=== PATIENT | female | born 1940 | race American Indian/Alaskan Native ===

== ENCOUNTER 2016-05-18 14:47 | Outpatient (CLI) | payer MEDICARE ==
--- NOTE | 2016-05-18 17:10 | Vascular Lab Report ---
LOWER EXTREMITY VENOUS DUPLEX: REASON FOR EXAM: Bilateral leg swelling. COMMENTS ON THE RIGHT: Deep venous thrombosis is noted in the femoral and peroneal veins. The remaining veins visualized are freely compressible without evidence of internal echogenicity. Spontaneous and phasic flow is present proximally. COMMENTS ON THE LEFT: All veins visualized are freely compressible without evidence of internal echogenicity. Flow is spontaneous and phasic throughout. IMPRESSION: Deep venous thrombosis in the right lower extremity
== END 2016-05-18 14:48 | disposition home or self-care (01) ==
LOC: VAS 14:47
PROVIDERS: ATTEND Internal Medicine Hematology & Oncology
DX: C16.9 Malignant neoplasm of stomach, unspecified (principal); C49.4 Malignant neoplasm of connective and soft tissue of abdomen; I82.411 Acute embolism and thrombosis of right femoral vein; M79.89 Other specified soft tissue disorders
CPT/HCPCS: 93970

== ENCOUNTER 2016-05-22 11:52 | Outpatient (CLI) | payer MEDICARE ==
--- NOTE | 2016-05-22 12:24 | XRay Report ---
CHEST X-RAY, 2 VIEWS History: Cough, coarse breath sounds. Findings: An approximate 7 x 6 cm mass like lesion is identified along the right side of the superior mediastinum. This is a new finding since 09/10/07. The trachea is compressed and diverted to the left side. Tracheal stenosis could be present. Heart size is normal. Normal pulmonary vascularity. The lungs are clear. Normal bony thorax. Impression: Right superior mediastinal mass which is new since 2007. Further evaluation with CT chest with contrast is recommended. A neoplastic process is suspected until proven otherwise.
== END 2016-05-22 11:53 | disposition home or self-care (01) ==
LOC: SPVIMAG 11:52
PROVIDERS: ATTEND Internal Medicine Hematology & Oncology
DX: C16.9 Malignant neoplasm of stomach, unspecified (principal); C49.4 Malignant neoplasm of connective and soft tissue of abdomen; R05 Cough; R09.89 Other specified symptoms and signs involving the circulatory and respiratory systems
CPT/HCPCS: 71020

== ENCOUNTER 2016-06-15 10:01 | Outpatient (CLI) | payer MEDICARE ==
--- NOTE | 2016-06-15 11:47 | Mammography Report ---
BILATERAL DIGITAL DIAGNOSTIC MAMMOGRAM with CAD and LEFT BREAST ULTRASOUND: 06/15/16 10:01:00 CLINICAL: Left breast swelling. COMPARISON:None available. FINDINGS: The breasts are heterogeneously dense, which may obscure small masses in the left breast is slightly more dense on the right. Moderate bilateral periareolar and lower inner skin thickening which is greater on the left than the right.No mass, architectural distortion or suspicious calcifications. Ultrasound of left breast (including all four quadrants and the retroareolar area) was performed and demonstrated normal fibroglandular and fatty structures. No mass, cyst or shadowing. Ultrasound of the left axilla demonstrated a single lymph node with central fat and benign morphology measuring 9 x 8 x 4 mm. No suspicious lymph nodes. On physical exam, the left breast is more firm than the right and there is inferior periareolar peau d'orange change of the skin. A IMPRESSION: Suspicious asymmetric skin thickening of the left breast with peau d'orange change of the skin. However, no underlying breast or axillary mass is identified on the mammogram or with left breast ultrasound. The differential includes benign soft tissue edema or lymphedema as well as occult malignancy. Recommend a skin biopsy of the left breast to exclude malignancy. BI-RADS CATEGORY: 4--Suspicious RECOMMENDATION: Referral to a breast surgeon for a punch biopsy of the skin of the left breast. ACR BI-RADS MAMMOGRAPHIC CODES: 0 = Needs additional imaging evaluation; 1 = Negative; 2 = Benign; 3 = Probably benign; 4 = Suspicious; 5 = Malignant; 6 = Known biopsy-proven malignancy COMMENT: 1. Dense breast tissue, i.e., adenosis, fibrocystic changes, etc., may obscure an underlying neoplasm. 2. Approximately 10% of cancers are not detected with mammography. 3. A negative mammography report should not delay biopsy if a clinically suspicious mass is present. COMMENT: Patient follow-up letters are generated by our [employer] application.
== END 2016-06-15 10:02 | disposition home or self-care (01) ==
LOC: SPVWC 10:01
PROVIDERS: ATTEND Internal Medicine Hematology & Oncology
DX: N63 Unspecified lump in breast (principal)
CPT/HCPCS: 76641; G0204; 77066

== ENCOUNTER 2017-02-19 07:23 | Outpatient (CLI) | payer MEDICARE ==
--- NOTE | 2017-02-20 07:37 | Vascular Lab Report ---
Right Lower Extremity Venous Duplex Study: Reason for Exam: History of right leg DVT. Comments on the Right: All veins visualized are freely compressible without evidence of internal echogenicity. Flow is spontaneous and phasic throughout. No evidence of acute or chronic thrombus is seen in any of the vessels visualized. Comments on the Left: A limited duplex study was done of the proximal veins of the left lower extremity. All veins visualized are freely compressible without evidence of internal echogenicity. Flow is spontaneous and phasic throughout. No evidence of acute or chronic thrombus is seen in any of the vessels visualized. Impression: No evidence of acute or chronic deep venous thrombosis in the right lower extremity.
== END 2017-02-19 07:24 | disposition home or self-care (01) ==
LOC: VAS 07:23
PROVIDERS: ATTEND Internal Medicine Hematology & Oncology
DX: I82.401 Acute embolism and thrombosis of unspecified deep veins of right lower extremity (principal); C16.9 Malignant neoplasm of stomach, unspecified; C49.4 Malignant neoplasm of connective and soft tissue of abdomen